=== PATIENT | male | born 1945 | race Caucasian/White ===

== ENCOUNTER 2017-10-13 10:15 | Inpatient (IN) | payer OTHER ==
[~2017-10-13] VITALS: Ht 167.6 cm; Wt 86.2 kg
[~2017-10-13 10:15] MED LIST: ATORVASTATIN CA40 MG PO; CARVEDILOL12.5 MG PO; ENALAPRIL MALEA20 MG PO; GLIPIZIDE10 MG PO; HUMULIN; SPIRONOLACTONE25 MG PO; ULTRACET PO
[2017-11-02] MEDS ORDERED: OXYC1TAB9 PO (12:49)
[2017-11-02] MEDS ORDERED: INTESTINEX680 M1 PO (12:50)
[2017-11-02] MEDS ORDERED: IMODIUM A-D2 MG PO (12:50)
== END 2017-11-02 15:55 | disposition home or self-care (01) | DRG 329 ==
LOC: SURG 10-25 08:02 → O/R 10-25 08:02 → SURH 10-25 11:15 → SURG 10-25 14:02 → SURH 10-25 15:15 → O/R 10-26 07:29 → ICU 10-27 00:28 → SURH 10-31 14:15
PROVIDERS: Surgery
PROC: 0D1B4Z4 Bypass Ileum to Cutaneous, Percutaneous Endoscopic Approach (ICD-10-PCS; 2017-10-25)
PROC: 07TC4ZZ Resection of Pelvis Lymphatic, Percutaneous Endoscopic Approach (ICD-10-PCS; 2017-10-25)
PROC: 0DJD8ZZ Inspection of Lower Intestinal Tract, Via Natural or Artificial Opening Endoscopic (ICD-10-PCS; 2017-10-25)
PROC: 0BH17EZ Insertion of Endotracheal Airway into Trachea, Via Natural or Artificial Opening (ICD-10-PCS; 2017-10-25)
PROC: 5A1955Z Respiratory Ventilation, Greater than 96 Consecutive Hours (ICD-10-PCS; 2017-10-25)
PROC: 0DTP4ZZ Resection of Rectum, Percutaneous Endoscopic Approach (ICD-10-PCS; principal; 2017-10-25 11:15)
PROC: B246ZZZ Ultrasonography of Right and Left Heart (ICD-10-PCS; 2017-10-26)
PROC: 4A033R1 Measurement of Arterial Saturation, Peripheral, Percutaneous Approach (ICD-10-PCS; 2017-10-29)
PROC: 4A12X4Z Monitoring of Cardiac Electrical Activity, External Approach (ICD-10-PCS; 2017-10-31)
DX: C19 Malignant neoplasm of rectosigmoid junction (principal); J95.821 Acute postprocedural respiratory failure; I50.20 Unspecified systolic (congestive) heart failure; I11.0 Hypertensive heart disease with heart failure; E11.9 Type 2 diabetes mellitus without complications